=== PATIENT | female | born 1975 | race Two or more races ===

== ENCOUNTER 2023-07-21 00:33 | Emergency (ER) | payer OTHER ==
[~2023-07-21] VITALS: Ht 157.5 cm; Wt 63.5 kg
[2023-07-21] MEDS ORDERED: HYDROCODONE/APAP 5/325MG TABLET ONE (00:57)
[2023-07-21] MEDS ORDERED: dexaMETHasone SOD PHOSPHATE 1 ML ONE (00:57)
[2023-07-21] MEDS ORDERED: KETOROLAC TROMETHAMINE INJ 60 MG/2 ML VIAL IM ONE ×2 (00:57→01:00)
[2023-07-21] MEDS ORDERED: CARISOPRODOL 350 MG TABLET ONE (00:58)
[2023-07-21] MEDS ORDERED: HYDROCODONE/APAP 5/325MG TABLET PO ONE (01:00)
[2023-07-21] MEDS ORDERED: CARISOPRODOL 350 MG TABLET PO ONE (01:00)
[2023-07-21] MEDS ORDERED: dexaMETHasone SOD PHOSPHATE 4 MG/ML VIAL IM ONE (01:00)
[2023-07-21] MEDS ORDERED: PRED50TA PO (01:18)
[2023-07-21] MEDS ORDERED: IBUP-1957 PO (01:18)
[2023-07-21] MEDS ORDERED: CARI350T PO (01:18)
[2023-07-21] MEDS ORDERED: HYDR-4303 PO ×2 (01:18→15:59)
[2023-07-21 02:40] VITALS: BP 130/85; TEMP 97.8; O2SAT 99
== END 2023-07-21 02:40 | disposition home or self-care (01) ==
LOC: ER 00:40 → EDBD 00:40 → ER 02:40
DX: M54.12 Radiculopathy, cervical region (principal); M62.838 Other muscle spasm; Z60.2 Problems related to living alone
CPT/HCPCS: 99284; 96372 ×2; J1100; J1885